=== PATIENT | female | born 1935 | race Two or more races ===

== ENCOUNTER 2016-10-11 09:15 | Outpatient (RCR) | payer MEDICARE, OTHER ==
[~2016-10-11 09:15] MED LIST: CIPROFLOXACIN500 M2 ORAL; IBUPROFEN400 MG ORAL; NORCO 5-325 TA1 EACH ORAL; VALIUM2 MG ORAL
== END 2016-11-04 | disposition home or self-care (01) ==
LOC: PTY 09:15
DX: R26.9 Unspecified abnormalities of gait and mobility (principal); G60.9 Hereditary and idiopathic neuropathy, unspecified; Z91.81 History of falling
CPT/HCPCS: 97110; 97162; G8978; G8979

== ENCOUNTER 2016-12-04 07:52 | Outpatient (RCR) | payer MEDICARE, OTHER | END 2016-12-05 | disposition home or self-care (01) | LOC: PTY 07:52 | DX: R26.9 Unspecified abnormalities of gait and mobility (principal); G60.9 Hereditary and idiopathic neuropathy, unspecified; Z91.81 History of falling ==

== ENCOUNTER 2017-01-02 07:59 | Outpatient (RCR) | payer MEDICARE, OTHER | END 2017-01-04 | disposition home or self-care (01) | LOC: PTY 07:59 | DX: R26.9 Unspecified abnormalities of gait and mobility (principal); G60.9 Hereditary and idiopathic neuropathy, unspecified; Z91.81 History of falling; M54.9 Dorsalgia, unspecified; E03.9 Hypothyroidism, unspecified; E78.00 Pure hypercholesterolemia, unspecified | CPT/HCPCS: 97110; G8978; G8979; G8980 ==

== ENCOUNTER 2017-04-20 11:21 | Emergency (ER) | payer MEDICARE, OTHER ==
[~2017-04-20] VITALS: Ht 152.4 cm; Wt 59.0 kg
[2017-04-20] MEDS ORDERED: Acetaminophen 500mg (ES) tab ORAL ONE (12:00)
[2017-04-20] MEDS ORDERED: ACETAMINOPHEN500 MG ORAL (12:38)
--- NOTE | 2017-04-20 12:55 | Diagnostic Imaging Report ---
Indication: Pain, headache Technique: Continuous helical CT scanning of the head was performed utilizing automated exposure control without intravenous contrast material. Axial and coronal reconstructions were obtained. Comparison: 06/26/2014 CT dose: Total DLP 1439.42 mGycm; CTDI vol 70.38 mGy Findings: There is no acute intracranial hemorrhage, mass effect or cortical edema. CSF attenuation fluid noted around the cerebral hemispheres, increased, compared to the prior exam. Cortical veins are noted crossing the space favoring etiology as atrophy related to enlargement of the subarachnoid space over subdural hygroma. The ventricles, cisterns and sulci are prominent consistent with atrophy. Periventricular hypoattenuation is seen, a nonspecific finding. Mastoid air cells are clear. Some mucosal thickening noted within some ethmoid air cells. No focal lesions of the bony calvarium or soft tissues of the scalp are seen. Impression: No evidence of acute intracranial hemorrhage, mass effect or cortical edema. MRI may be obtained for more sensitive evaluation as clinically indicated. Atrophy and nonspecific periventricular hypoattenuation suggestive of chronic ischemic microvascular changes. The CT scanner at [facility] is accredited by the [employer] and the scans are performed using protocols designed to limit radiation exposure to as low as reasonably achievable to attain images of sufficient resolution adequate for diagnostic evaluation.
[2017-04-20 13:31] VITALS: BP 104/78
--- NOTE | 2017-04-20 16:32 | Emergency Room Report ---
History of Present Illness General Chief Complaint: Multiple Trauma/Fall Present Illness HPI Patient 81-year-old female presented after a fall. The patient was having recently fallen 2 days ago. She reports having moderate headache. She denies any vomiting. She denies any severe neck pain. Patient denied numbness or weakness. She states that she had been having headache since the fall. She denies loss of consciousness. She had been able to move all her extremities. The patient does not take anticoagulants other than aspirin Allergies: Coded Allergies: No Known Allergies (Unverified , 06/26/14) Patient History Past Medical History: see triage record Reviewed Nursing Documentation: PMH: Agreed, PSxH: Agreed Nursing Documentation-PMH Hx Cardiac Problems: Yes - Hypothyroidism, High cholesterol Review of Systems All Other Systems: negative except mentioned in HPI Physical Exam Vital Signs Date Time Temp Pulse Resp B/P (MAP) Pulse Ox O2 Delivery O2 Flow Rate FiO2 04/20/17 11:29 98.2 84 20 115/72 99 Room Air General Appearance: well appearing, no apparent distress, alert, GCS 15 Head: normocephalic, atraumatic ENT: hearing grossly normal, normal voice Neck: full range of motion, supple Respiratory: no respiratory distress, speaking full sentences Cardiovascular #1: normal inspection, regular rate, rhythm Musculoskeletal: normal inspection, back normal, digits/nails normal, gait/ station normal, normal range of motion, no calf tenderness Neurologic: normal gait Psychiatric: mood/affect normal Skin: no rash Medical Decision Making Diagnostic Impression: Primary Impression: Head contusion ER Course patient is a for headache after fall. Differential diagnoses included but was not limited to skull fracture, subarachnoid hemorrhage, meningitis, aneurysm, mass lesion, intracranial hemorrhage.CT the head read by radiology showed no evidence of acute fracture or hemorrhage.The patient is advised to follow up with primary care doctor in 1-2 days. Patient is advised to return if any worsening condition or if any changes in status that are concerning. This report is dictated with [employer] slate picker software which may occasionally lead to discrepancies related to use of this software. Last Vital Signs Date Time Temp Pulse Resp B/P (MAP) Pulse Ox O2 Delivery O2 Flow Rate FiO2 04/20/17 13:31 98.2 82 19 104/78 98 Room Air Status: improved Disposition: HOME, SELF-CARE Condition: Stable Scripts Acetaminophen* (TYLENOL EXTRA STRENGTH*) 500 Mg Tablet 1000 MG ORAL Q6H, #20 TAB Prov: Mukesh Fox 04/20/17 Referrals: NOT CHOSEN IPA/MD,REFERRING (PCP) Patient Instructions: Head Injury, Adult Mukesh Fox Apr 20, 2017 16:32
== END 2017-04-20 13:32 | disposition home or self-care (01) ==
LOC: EMR 12:40
DX: T14.8XXA Other injury of unspecified body region, initial encounter (principal); W19.XXXA Unspecified fall, initial encounter; Y92.9 Unspecified place or not applicable; E03.9 Hypothyroidism, unspecified; E78.00 Pure hypercholesterolemia, unspecified
CPT/HCPCS: 70450; 99284

== ENCOUNTER 2017-05-09 08:00 | Outpatient (RCR) | payer MEDICARE, OTHER ==
[~2017-05-09 08:00] MED LIST changes: +ACETAMINOPHEN500 MG ORAL
== END 2017-06-04 | disposition home or self-care (01) ==
LOC: PTY 08:00
DX: R26.9 Unspecified abnormalities of gait and mobility (principal)
CPT/HCPCS: 97110; 97161; G8978; G8979

== ENCOUNTER 2017-06-06 08:15 | Outpatient (RCR) | payer MEDICARE, OTHER | END 2017-07-05 | disposition home or self-care (01) | LOC: PTY 08:15 | DX: R26.89 Other abnormalities of gait and mobility (principal); G90.09 Other idiopathic peripheral autonomic neuropathy | CPT/HCPCS: 97110; G8979; G8980 ==

== ENCOUNTER 2018-09-14 09:11 | Emergency (ER) | payer MEDICARE, OTHER ==
[~2018-09-14] VITALS: Ht 152.4 cm; Wt 59.0 kg
--- NOTE | 2018-09-14 09:22 | NUR ---
ED Nurse Note: PT WALKED IN TO ER TODAY FROM HOME. AOX4. PT C/O PERSISTENT, NONPRODUCTIVE COUGH X 2 DAYS AGO. PT C/O PAIN WITH COUGH BUT DENIES PAIN AT REST. PT STATES SHE HAS TAKEN OTC MEDICATIONS BUT WITHOUT RELIEF. NO SIGNS OF RESPIRATORY DISTRESS, RETRACTIONS, OR ACCESSORY MUSCLE USE NOTED. LUNG SOUNDS CLEAR IN ALL LOBES. PT ABLE TO SPEAK IN FULL SENTENCES WITHOUT DIFFICULTY.
[2018-09-14 09:24] VITALS: BP 114/74
[2018-09-14] MEDS ORDERED: ZITHROMAX250 MG ORAL (09:27)
[2018-09-14] MEDS ORDERED: ALBUTEROL SULF8.5 GM INH (09:27)
[2018-09-14 09:31] VITALS: BP 114/74
--- NOTE | 2018-09-14 09:31 | NUR ---
Note jenna in EDM - 09/14/18 at 0934 by FLAQUITO ER DISCHARGE NOTE: Patient is cleared to be discharged per ERMD, pt is aox4, on room air, with stable vital signs. pt was given dc and prescription instructions, pt was able to verbalize understanding, pt id band removed. pt is able to ambulate with steady gait. pt took all belongings.
--- NOTE | 2018-09-14 09:34 | NUR ---
ED Nurse Note: PT LAYING PEACEFULLY IN BED IN NAD. AOX4. PRESCRIPTIONS AND DISCHARGE PAPERWORK EXPLAINED TO PT. PT VERBALIZES UNDERSTANDING AND ALL QUESTIONS ANSWERED. PRESCRIPTIONS AND DISCHARGE PAPERWORK GIVEN TO PT AND ID WRISTBAND REMOVED. PT WALKED OUT OF ER WITH STEADY GAIT AND ALL BELONGINGS.
--- NOTE | 2018-09-14 10:28 | Emergency Room Report ---
History of Present Illness General Chief Complaint: Upper Respiratory Illness Source: Patient, Medical Record Present Illness HPI Patient presents emergency department today complaining of cough and congestion. Patient also has some fevers and chills at home. States the symptoms have been going for couple days. She has some chest discomfort when she is coughing. She denies any shortness of breath. Denies any nausea vomiting diarrhea or chills. Symptoms noted to moderate. No other modifying factors. No other associated signs and symptoms. No other complaints were noted. Allergies: Coded Allergies: No Known Allergies (Unverified , 06/26/14) Patient History Past Medical History: none Past Surgical History: none Pertinent Family History: none Social History: Denies: smoking, alcohol use, drug use Reviewed Nursing Documentation: PMH: Agreed; PSxH: Agreed Nursing Documentation-PMH Past Medical History: No History, Except For Hx Cardiac Problems: Yes - Hypothyroidism, High cholesterol Review of Systems All Other Systems: negative except mentioned in HPI Physical Exam Vital Signs Date Time Temp Pulse Resp B/P (MAP) Pulse Ox O2 Delivery O2 Flow Rate FiO2 09/14/18 09:17 97.9 84 16 115/78 (90) 97 Room Air Sp02 EP Interpretation: reviewed, normal General Appearance: normal inspection, well appearing, no apparent distress, alert Head: atraumatic Eyes: bilateral eye normal inspection ENT: normal ENT inspection, hearing grossly normal, normal voice Neck: normal inspection, full range of motion, supple, no bony tend Respiratory: normal inspection, lungs clear, normal breath sounds, no respiratory distress, no retraction, no wheezing Cardiovascular #1: regular rate, rhythm, no edema Gastrointestinal: normal inspection, normal bowel sounds, non tender, soft, no guarding, no hernia Genitourinary: no CVA tenderness Musculoskeletal: normal inspection, back normal, normal range of motion Neurologic: normal inspection, alert, responsive, speech normal Psychiatric: normal inspection, judgement/insight normal, mood/affect normal Skin: normal inspection, normal color, no rash Medical Decision Making Diagnostic Impression: Primary Impression: Cough ER Course Patient presents emergency department today complaint cough congestion. Differential considerations include pneumonia, bronchitis, viral syndrome just name a few. Patient's exam is consistent with bronchitis. Given patient's symptoms and advanced age I feel that is reasonable start patient on antibiotics. Patient was started with Zithromax albuterol. Patient is advised to follow up with primary doctor in 2-3 days and return the emergency room for any worsening symptoms and as needed. Last Vital Signs Date Time Temp Pulse Resp B/P (MAP) Pulse Ox O2 Delivery O2 Flow Rate FiO2 09/14/18 09:31 98.0 78 17 114/74 98 Room Air Status: improved Disposition: HOME, SELF-CARE Condition: Stable Scripts Albuterol Sulfate* (ALBUTEROL SULFATE MDI*) 8.5 Gm Hfa.aer.ad 2 PUFF INH Q4H PRN for cough/wheezing, #1 EA 0 Refills Prov: Jose Alberto Vidales MD 09/14/18 Azithromycin* (ZITHROMAX*) 250 Mg Tablet 250 MG ORAL DAILY, #6 TAB 0 Refills Take two tables once daily for 1 day, then one tablet once daily for 4 days. Prov: Jose Alberto Vidales MD 09/14/18 Referrals: NON PHYSICIAN (PCP) Patient Instructions: Upper Respiratory Infection, Adult Jose Alberto Vidales MD Sep 14, 2018 10:28
== END 2018-09-14 09:31 | disposition home or self-care (01) ==
LOC: EMR 09:25
DX: R05 Cough (principal); R50.9 Fever, unspecified; E03.9 Hypothyroidism, unspecified; E78.00 Pure hypercholesterolemia, unspecified
CPT/HCPCS: 99282

== ENCOUNTER 2019-04-13 08:57 | Observation (INO) | payer MEDICARE, OTHER ==
[~2019-04-13] VITALS: Ht 152.4 cm; Wt 45.8 kg
[~2019-04-13 08:57] MED LIST changes: +ALBUTEROL SULF8.5 GM INH; +ZITHROMAX250 MG ORAL
[2019-04-13 09:02] VITALS: BP 106/64
--- NOTE | 2019-04-13 09:02 | NUR ---
ED Nurse Note: PT BROUGHT IN BY RA 858 FROM HOME DUE TO BODY WEAKNESS. PER EMS, PT WAS STANDING IN THE GARAGE AND FELT THAT HER LEGS WERE GIVING UP. DENIES FALL OR INJURY. AAO X4, AMBULATORY, FOLLOWS COMMANDS WITH NON LABORED BREATHING.
--- NOTE | 2019-04-13 09:21 | NUR ---
ED Nurse Note: COLLECTED BLOOD THEN SENT.
[2019-04-13 09:24] LABS: BASOPHILS % (AUTO) 0.5 % (0.0-2.0); EOSINOPHILS % (AUTO) 0.6 % (0.0-3.0); HEMATOCRIT 41.7 % (37.0-47.0); HEMOGLOBIN 14.1 G/DL (12.0-16.0); LYMPHOCYTES % (AUTO) 35.6 % (20.0-45.0); MEAN CORPUSCULAR VOLUME 94 FL (80-99); MONOCYTES % (AUTO) 6.4 % (1.0-10.0); NEUTROPHILS % (AUTO) 56.9 % (45.0-75.0); PLATELET COUNT 193 K/UL (150-450); RED BLOOD COUNT 4.43 M/UL (4.20-5.40); RED CELL DISTRIBUTION WIDTH 12.3 % (11.6-14.8); WHITE BLOOD COUNT 5.9 K/UL (4.8-10.8)
--- NOTE | 2019-04-13 09:30 | NUR ---
ED Nurse Note: COLLECTED URINE THEN SENT.
[2019-04-13 09:32] LABS: ANION GAP 7 mmol/L (5-15); BLOOD UREA NITROGEN 26 mg/dL (7-18); CARBON DIOXIDE 30 MMOL/L (21-32); CHLORIDE 105 MMOL/L (98-107); CREATININE 0.9 MG/DL (0.55-1.30); POTASSIUM 4.1 MMOL/L (3.5-5.1); SODIUM 141 MMOL/L (136-145)
[2019-04-13 09:36] LABS: ALANINE AMINOTRANSFERASE 32 U/L (12-78); ALBUMIN/GLOBULIN RATIO 1.1 (1.0-2.7); ALKALINE PHOSPHATASE 60 U/L (46-116); ASPARTATE AMINO TRANSFERASE 41 U/L (15-37); BILIRUBIN,TOTAL 0.5 MG/DL (0.2-1.0)
[2019-04-13 10:04] LABS: APPEARANCE,URINE SLIGHTLY CLOUDY; BILIRUBIN, URINE NEGATIVE (NEGATIVE); COLOR,URINE PALE YELLOW; GLUCOSE, URINE (UA) NEGATIVE (NEGATIVE); KETONES,URINE NEGATIVE (NEGATIVE); LEUKOCYTE ESTERASE ,URINE NEGATIVE (NEGATIVE); NITRITE,URINE NEGATIVE (NEGATIVE); PH,URINE 7 (4.5-8.0); PROTEIN,URINE NEGATIVE (NEGATIVE); UROBILINOGEN,URINE NORMAL MG/DL (0.0-1.0)
--- NOTE | 2019-04-13 10:30 | Emergency Room Report ---
History of Present Illness General Chief Complaint: Generalized Weakness Source: Patient, EMS Present Illness HPI Patient presents emergency department today with generalized weakness. Patient states that she is elderly and she does not feel well. Patient called 911 to be transported here. Patient's primary care physician is as result rob. Patient states that she is feeling so weak she cannot stand as result she had a call 911 to come here. She any fever nausea vomiting diarrhea chills. Denies any chest pain shortness of breath. No other modifying factors. No other associated signs and symptoms. No other complaints were noted. Allergies: Coded Allergies: No Known Allergies (Unverified , 06/26/14) Patient History Past Medical History: none Past Surgical History: none Pertinent Family History: none Social History: Denies: smoking, alcohol use, drug use Reviewed Nursing Documentation: PMH: Agreed; PSxH: Agreed Review of Systems All Other Systems: negative except mentioned in HPI Physical Exam Vital Signs Date Time Temp Pulse Resp B/P (MAP) Pulse Ox O2 Delivery O2 Flow Rate FiO2 04/13/19 08:52 98.8 70 17 114/69 (84) 94 Room Air Sp02 EP Interpretation: reviewed, normal General Appearance: alert, mild distress, thin Head: normocephalic, atraumatic Eyes: bilateral eye normal inspection ENT: normal ENT inspection, hearing grossly normal, normal voice Neck: normal inspection, full range of motion, supple, no bony tend Respiratory: normal inspection, lungs clear, normal breath sounds, no respiratory distress, no retraction, no wheezing Cardiovascular #1: regular rate, rhythm, no edema Gastrointestinal: normal inspection, normal bowel sounds, non tender, soft, no guarding, no hernia Genitourinary: no CVA tenderness Musculoskeletal: normal inspection, back normal, normal range of motion Neurologic: alert, responsive, speech normal, normal inspection Psychiatric: normal inspection, judgement/insight normal, mood/affect normal Skin: no rash Medical Decision Making Diagnostic Impression: Primary Impression: Failure to thrive Additional Impressions: Dehydration Generalized weakness Unable to ambulate ER Course Patient presents emergency department today with generalized weakness and inability ambulate. Differential diagnosis include infectious process, dehydration, electrolyte abnormality, failure to thrive just name a few. Given the severity of the patient's presentation I felt this is a highly complex patient. This patient required extensive workup. Patient laboratory work-up was not impressive but she appeared to be weak and was unable to ambulate because of that I felt patient could be dehydrated as well. Patient was started on fluid bolus. Given patient's poor condition I feel the patient required placement at least in observation. Case was discussed with Dr. Love. Patient will be placed on observation status. Labs Test 04/13/19 09:15 04/13/19 09:30 White Blood Count 5.9 K/UL (4.8-10.8) Red Blood Count 4.43 M/UL (4.20-5.40) Hemoglobin 14.1 G/DL (12.0-16.0) Hematocrit 41.7 % (37.0-47.0) Mean Corpuscular Volume 94 FL (80-99) Mean Corpuscular Hemoglobin 31.8 PG (27.0-31.0) Mean Corpuscular Hemoglobin Concent 33.8 G/DL (32.0-36.0) Red Cell Distribution Width 12.3 % (11.6-14.8) Platelet Count 193 K/UL (150-450) Mean Platelet Volume 7.4 FL (6.5-10.1) Neutrophils (%) (Auto) 56.9 % (45.0-75.0) Lymphocytes (%) (Auto) 35.6 % (20.0-45.0) Monocytes (%) (Auto) 6.4 % (1.0-10.0) Eosinophils (%) (Auto) 0.6 % (0.0-3.0) Basophils (%) (Auto) 0.5 % (0.0-2.0) Sodium Level 141 MMOL/L (136-145) Potassium Level 4.1 MMOL/L (3.5-5.1) Chloride Level 105 MMOL/L (98-107) Carbon Dioxide Level 30 MMOL/L (21-32) Anion Gap 7 mmol/L (5-15) Blood Urea Nitrogen 26 mg/dL (7-18) Creatinine 0.9 MG/DL (0.55-1.30) Estimat Glomerular Filtration Rate mL/min (>60) Glucose Level 100 MG/DL (74-106) Calcium Level 10.0 MG/DL (8.5-10.1) Total Bilirubin 0.5 MG/DL (0.2-1.0) Aspartate Amino Transf (AST/SGOT) 41 U/L (15-37) Alanine Aminotransferase (ALT/SGPT) 32 U/L (12-78) Alkaline Phosphatase 60 U/L (46-116) Troponin I 0.000 ng/mL (0.000-0.056) Total Protein 7.6 G/DL (6.4-8.2) Albumin 4.0 G/DL (3.4-5.0) Globulin 3.6 g/dL Albumin/Globulin Ratio 1.1 (1.0-2.7) Lipase 204 U/L (73-393) Urine Color Pale yellow Urine Appearance Slightly cloudy Urine pH 7 (4.5-8.0) Urine Specific [place] 1.010 (1.005-1.035) Urine Protein Negative (NEGATIVE) Urine Glucose (UA) Negative (NEGATIVE) Urine Ketones Negative (NEGATIVE) Urine Blood Negative (NEGATIVE) Urine Nitrite Negative (NEGATIVE) Urine Bilirubin Negative (NEGATIVE) Urine Urobilinogen Normal MG/DL (0.0-1.0) Urine Leukocyte Esterase Negative (NEGATIVE) Urine RBC 0 /HPF (0 - 2) Urine WBC 0 /HPF (0 - 2) Urine Squamous Epithelial Cells Occasional /LPF Urine Amorphous Sediment Few /LPF (NONE) Urine Bacteria Occasional /HPF (NONE) EKG Diagnostic Results Rate: normal Rhythm: NSR ST Segments: no acute changes Rhythm Strip Diag. Results EP Interpretation: yes Rate: 64 Rhythm: NSR, no PVC's, no ectopy Chest X-Ray Diagnostic Results Chest X-Ray Diagnostic Results : Chest X-Ray Ordered: Yes # of Views/Limited/Complete: 1 View Indication: Chest Pain EP Interpretation: Yes Impression: No acute disease Electronically Signed by: Electronically signed by Jose Alberto Vidales MD Last Vital Signs Date Time Temp Pulse Resp B/P (MAP) Pulse Ox O2 Delivery O2 Flow Rate FiO2 04/13/19 09:02 98.8 86 16 106/64 97 Room Air Status: improved Disposition: PLACE IN OBSERVATION Condition: Serious Scripts Unable to Obtain Active Prescriptions or Reported Meds Referrals: NOT CHOSEN IPA/,REFERRING (PCP) Jose Alberto Vidales MD Apr 13, 2019 10:30
[2019-04-13 10:33] VITALS: BP 118/70
--- NOTE | 2019-04-13 10:33 | NUR ---
ED Nurse Note: REPORT GIVEN TO FREDDY RN BY LEANDRO STRAUSS.
[2019-04-13 10:59] VITALS: BP 117/60
--- NOTE | 2019-04-13 11:52 | Diagnostic Imaging Report ---
Indication: Cough Technique: One view of the chest Comparison: 06/26/2014 Findings: There is thoracolumbar scoliotic deformity. Lungs and pleural spaces are clear. Left axillary surgical clips are again demonstrated. The heart size is normal. There is no significant interim change Impression: No acute process
[2019-04-13 12:00] VITALS: BP 105/64
--- NOTE | 2019-04-13 14:34 | NUR ---
NURSE NOTES: Received pt from TAMARA STRAUSS at 1030. pt is alert and orient x4. pt is in RA, no SOB or acute respiratory distress. pt has intact iv access RAC 20G is running well. Dr LARSON is aware about admission, all orders noted and carried out. skin is intact. all needs attended, bed is locked and is in the lowest position, call light within easy reach. will continue to monitor. Addendum: 04/13/19 at 1453 by Paul Ribeiro RN pt doesn't have any list from home meds and doesn't remember their name, Dr LARSON notified and he stated he has and orders done.
[2019-04-13 16:00] VITALS: BP 101/57
--- NOTE | 2019-04-13 17:47 | General Progress Note ---
Subjective Date patient seen: Apr 13, 2019 Time patient seen: 17:40 Allergies: Coded Allergies: No Known Allergies (Unverified , 06/26/14) Subjective patient was seen and examined and full dictation done. Objective Last 24 Hour Vital Signs Date Time Temp Pulse Resp B/P (MAP) Pulse Ox O2 Delivery O2 Flow Rate FiO2 04/13/19 16:00 97.4 65 18 101/57 (72) 99 04/13/19 12:00 98.6 66 18 105/64 (78) 98 04/13/19 11:00 Room Air 04/13/19 10:59 98.6 60 20 117/60 (79) 98 04/13/19 10:33 98.6 75 20 118/70 97 Room Air 04/13/19 10:33 98.6 75 20 118/70 97 Room Air 04/13/19 09:02 98.8 86 16 106/64 97 Room Air 04/13/19 09:02 87 16 Room Air 04/13/19 08:52 98.8 70 17 114/69 (84) 94 Room Air Laboratory Tests 04/13/19 09:15: White Blood Count 5.9, Red Blood Count 4.43, Hemoglobin 14.1, Hematocrit 41.7, Mean Corpuscular Volume 94, Mean Corpuscular Hemoglobin 31.8H, Mean Corpuscular Hemoglobin Concent 33.8, Red Cell Distribution Width 12.3, Platelet Count 193, Mean Platelet Volume 7.4, Neutrophils (%) (Auto) 56.9, Lymphocytes (%) (Auto) 35.6, Monocytes (%) (Auto) 6.4, Eosinophils (%) (Auto) 0.6, Basophils (%) (Auto ) 0.5, Sodium Level 141, Potassium Level 4.1, Chloride Level 105, Carbon Dioxide Level 30, Anion Gap 7, Blood Urea Nitrogen 26H, Creatinine 0.9, Estimat Glomerular Filtration Rate , Glucose Level 100, Calcium Level 10.0, Total Bilirubin 0.5, Aspartate Amino Transf (AST/SGOT) 41H, Alanine Aminotransferase ( ALT/SGPT) 32, Alkaline Phosphatase 60, Troponin I 0.000, Total Protein 7.6, Albumin 4.0, Globulin 3.6, Albumin/Globulin Ratio 1.1, Lipase 204 04/13/19 09:30: Urine Color Pale yellow, Urine Appearance Slightly cloudy, Urine pH 7, Urine Specific [place] 1.010, Urine Protein Negative, Urine Glucose (UA) Negative, Urine Ketones Negative, Urine Blood Negative, Urine Nitrite Negative, Urine Bilirubin Negative, Urine Urobilinogen Normal, Urine Leukocyte Esterase Negative , Urine RBC 0, Urine WBC 0, Urine Squamous Epithelial Cells Occasional, Urine Amorphous Sediment FewH, Urine Bacteria Occasional Height (Feet): 5 Height (Inches): 0.00 Weight (Pounds): 102 Ray Pena MD Apr 13, 2019 17:47
--- NOTE | 2019-04-13 19:16 | NUR ---
HAND-OFF: Report given to CARLOS A AVENDANO. Pt is alert and stable. daughter is on bed side.
--- NOTE | 2019-04-13 19:30 | History and Physical Report ---
DATE OF ADMISSION: 04/13/2019 CHIEF COMPLAINT: Generalized weakness. HISTORY OF PRESENT ILLNESS: This is a 83-year-old female who came in for complaint of generalized weakness with shipfitter apprentice. The patient states she got up to go the adult daycare center this morning and as she was waiting for the bus for transport, she could not stand and was unable to move, so she called shipfitter apprentice 911 and was transported to the emergency room for evaluation. In the ER, the patient vitals were all within normal range. Laboratory results are okay except for slight dehydration. EKG was also normal. The patient still complained of generalized weakness, was brought in for observation overnight. ALLERGIES: No known drug allergies. PAST MEDICAL HISTORY: Includes history of hypothyroidism and anxiety disorder. FAMILY HISTORY: Noncontributory. SOCIAL HISTORY: The patient lives alone. No history of alcohol or drug use. No smoking history. PAST SURGICAL HISTORY: None. REVIEW OF SYSTEMS: Review of systems were negative except for history of present illness. PHYSICAL EXAMINATION: VITAL SIGNS: Include temperature 98.8, pulse 70, respirations 17, blood pressure 114/69, pulse ox 94% on room air. GENERAL APPEARANCE: Alert and oriented x3, no distress. HEENT: Normocephalic and normochromic. Extraocular muscles intact. Throat is clear. NECK: Supple. No lymphadenopathy. LUNGS: Clear to auscultation bilaterally CARDIOVASCULAR: Regular rate and rhythm. No murmur. No gallop. ABDOMEN: Soft, nontender, nondistended. Positive bowel sounds. EXTREMITIES: No edema, cyanosis, or clubbing. No CVA tenderness. NEUROLOGIC: Respond to commands and responsive. SKIN: No rash. LABORATORY DATA: WBC 5.9, hemoglobin 14.1, hematocrit 41.7, platelet count 193, neutrophils 56, lymphocytes 35, monos 6.4, eosinophils 0.6, basophils 0.5. Sodium 141, potassium 4.1, chloride 105, carbon dioxide 30, BUN 26, creatinine 0.9, glucose 100, calcium 10, AST 41, ALT 32, alkaline phosphatase 60, and albumin 4.0. Lipase 204. Troponin 0. UA were negative. EKG showed normal sinus rhythm. Chest x-ray showed no acute processes. IMPRESSION: 1. Dehydration. 2. Failure to thrive. 3. Generalized weakness. PLAN: The patient will be brought in for observation overnight and start IV fluids normal saline at 50 mL an hour and we will have the PT/OT evaluate the patient while in the hospital. We will restart the patient on home medications for her hypothyroidism, anxiety, and the patient will be brought in for observation at this point. Ray Pena M.D. DR: Elda JOB#: [id number] CC: CANDIDA
--- NOTE | 2019-04-13 19:30 | NUR ---
NURSE NOTES: Received patient awake, eating dinner, AOx4, daughter at the bedside. IV access patent, asymptomatic, running IVF maintenance. Patient's own walker noted at the bedside. Bed low and locked, wheels locked, belongings within reach.
[2019-04-13 20:00] VITALS: BP 115/64
--- NOTE | 2019-04-13 20:25 | NUR ---
NURSE NOTES: Dr Green paged for zoloft order per patient request.
[2019-04-13] MEDS ORDERED: Sertraline 50mg tab ORAL SCH (21:00)
[2019-04-13] MEDS ORDERED: Atorvastatin 20mg tab ORAL SCH (21:00)
[2019-04-14] VITALS: BP 105/59
[2019-04-14 04:00] VITALS: BP 108/59
[2019-04-14] MEDS ORDERED: Levothyroxine 25mcg tab ORAL SCH (06:30)
[2019-04-14 06:33] LABS: BASOPHILS % (AUTO) 1.1 % (0.0-2.0); EOSINOPHILS % (AUTO) 1.7 % (0.0-3.0); HEMATOCRIT 39.3 % (37.0-47.0); HEMOGLOBIN 13.2 G/DL (12.0-16.0); LYMPHOCYTES % (AUTO) 35.8 % (20.0-45.0); MEAN CORPUSCULAR VOLUME 95 FL (80-99); MONOCYTES % (AUTO) 10.2 % (1.0-10.0); NEUTROPHILS % (AUTO) 51.2 % (45.0-75.0); PLATELET COUNT 175 K/UL (150-450); RED BLOOD COUNT 4.12 M/UL (4.20-5.40); RED CELL DISTRIBUTION WIDTH 12.4 % (11.6-14.8); WHITE BLOOD COUNT 4.6 K/UL (4.8-10.8)
[2019-04-14 06:50] LABS: ANION GAP 8 mmol/L (5-15); BLOOD UREA NITROGEN 19 mg/dL (7-18); CALCIUM 8.5 MG/DL (8.5-10.1); CARBON DIOXIDE 26 MMOL/L (21-32); CHLORIDE 110 MMOL/L (98-107); CREATININE 0.7 MG/DL (0.55-1.30); POTASSIUM 3.5 MMOL/L (3.5-5.1); SODIUM 144 MMOL/L (136-145)
--- NOTE | 2019-04-14 07:45 | NUR ---
HAND-OFF: Report given to CARLOS A Hewitt.
--- NOTE | 2019-04-14 07:47 | NUR ---
NURSE NOTES: Patient awake, alert x4, Cam[place]onian and Slovenian speaking; on room air, no sing of distress and shortness of breath; no sing of chest pain; IV Left For-arm 22G NS 50cc running; walker and [place] at the bed side, within reach; side rails up x2, breaks engaged, bed at lowest position; will keep monitoring.
[2019-04-14 08:00] VITALS: BP 115/69
[2019-04-14] MEDS ORDERED: LIPITOR20 MG ORAL (08:48)
[2019-04-14] MEDS ORDERED: ZOLOFT50 MG ORAL (08:48)
[2019-04-14] MEDS ORDERED: SYNTHROID25 MCG ORAL (08:48)
[2019-04-14] MEDS ORDERED: ASPIRIN81 MG ORAL (08:48)
--- NOTE | 2019-04-14 08:53 | General Progress Note ---
Assessment/Plan Status: stable Assessment/Plan: 1. Dehydration - improved. will D/C home today with home health. 2. Hypothyroidism - cont home med 3. Anxiety disorder - cont home med. 4. Osteoarthritis - may take tylenol 650 mg q 6 hrs prn. Subjective Date patient seen: Apr 14, 2019 Time patient seen: 08:15 Constitutional: Reports: weakness HEENT: Reports: no symptoms Cardiovascular: Reports: no symptoms Respiratory: Reports: no symptoms Gastrointestinal/Abdominal: Reports: no symptoms Genitourinary: Reports: no symptoms Neurologic/Psychiatric: Reports: no symptoms Endocrine: Reports: no symptoms Hematologic/Lymphatic: Reports: no symptoms Allergies: Coded Allergies: No Known Allergies (Unverified , 06/26/14) Subjective Patient able to walk with walker. doing better with IV hydration and she wants to go home. Objective Last 24 Hour Vital Signs Date Time Temp Pulse Resp B/P (MAP) Pulse Ox O2 Delivery O2 Flow Rate FiO2 04/14/19 08:00 98.0 63 18 115/69 (84) 97 04/14/19 04:00 97.2 70 14 108/59 (75) 99 04/14/19 00:00 97.0 62 16 105/59 (74) 99 04/13/19 22:19 Room Air 04/13/19 20:00 96.8 67 18 115/64 (81) 99 04/13/19 16:00 97.4 65 18 101/57 (72) 99 04/13/19 12:00 98.6 66 18 105/64 (78) 98 04/13/19 11:00 Room Air 04/13/19 10:59 98.6 60 20 117/60 (79) 98 04/13/19 10:33 98.6 75 20 118/70 97 Room Air 04/13/19 10:33 98.6 75 20 118/70 97 Room Air 04/13/19 09:02 98.8 86 16 106/64 97 Room Air 04/13/19 09:02 87 16 Room Air 04/13/19 08:52 98.8 70 17 114/69 (84) 94 Room Air Intake and Output 04/13/19 04/14/19 19:00 07:00 Intake Total 1600 ml 350 ml Balance 1600 ml 350 ml Intake Oral 800 ml IV Total 800 ml 350 ml # Voids 5 3 Laboratory Tests 04/13/19 09:15: White Blood Count 5.9, Red Blood Count 4.43, Hemoglobin 14.1, Hematocrit 41.7, Mean Corpuscular Volume 94, Mean Corpuscular Hemoglobin 31.8H, Mean Corpuscular Hemoglobin Concent 33.8, Red Cell Distribution Width 12.3, Platelet Count 193, Mean Platelet Volume 7.4, Neutrophils (%) (Auto) 56.9, Lymphocytes (%) (Auto) 35.6, Monocytes (%) (Auto) 6.4, Eosinophils (%) (Auto) 0.6, Basophils (%) (Auto ) 0.5, Sodium Level 141, Potassium Level 4.1, Chloride Level 105, Carbon Dioxide Level 30, Anion Gap 7, Blood Urea Nitrogen 26H, Creatinine 0.9, Estimat Glomerular Filtration Rate , Glucose Level 100, Calcium Level 10.0, Total Bilirubin 0.5, Aspartate Amino Transf (AST/SGOT) 41H, Alanine Aminotransferase ( ALT/SGPT) 32, Alkaline Phosphatase 60, Troponin I 0.000, Total Protein 7.6, Albumin 4.0, Globulin 3.6, Albumin/Globulin Ratio 1.1, Lipase 204 04/13/19 09:30: Urine Color Pale yellow, Urine Appearance Slightly cloudy, Urine pH 7, Urine Specific [place] 1.010, Urine Protein Negative, Urine Glucose (UA) Negative, Urine Ketones Negative, Urine Blood Negative, Urine Nitrite Negative, Urine Bilirubin Negative, Urine Urobilinogen Normal, Urine Leukocyte Esterase Negative , Urine RBC 0, Urine WBC 0, Urine Squamous Epithelial Cells Occasional, Urine Amorphous Sediment FewH, Urine Bacteria Occasional 04/14/19 04:27: White Blood Count 4.6L, Red Blood Count 4.12L, Hemoglobin 13.2, Hematocrit 39.3 , Mean Corpuscular Volume 95, Mean Corpuscular Hemoglobin 32.2H, Mean Corpuscular Hemoglobin Concent 33.7, Red Cell Distribution Width 12.4, Platelet Count 175, Mean Platelet Volume 6.9, Neutrophils (%) (Auto) 51.2, Lymphocytes (% ) (Auto) 35.8, Monocytes (%) (Auto) 10.2H, Eosinophils (%) (Auto) 1.7, Basophils (%) (Auto) 1.1, Sodium Level 144, Potassium Level 3.5, Chloride Level 110H, Carbon Dioxide Level 26, Anion Gap 8, Blood Urea Nitrogen 19H, Creatinine 0.7, Estimat Glomerular Filtration Rate , Glucose Level 94, Calcium Level 8.5 Height (Feet): 5 Height (Inches): 0.00 Weight (Pounds): 101 General Appearance: no apparent distress, alert EENT: normal ENT inspection Neck: non-tender, normal alignment, supple Cardiovascular: normal rate, regular rhythm Respiratory/Chest: lungs clear, normal breath sounds Abdomen: non tender, soft Extremities: normal range of motion, non-tender Edema: no edema noted Arm (L), no edema noted Arm (R), no edema noted Leg (L), no edema noted Leg (R), no edema noted Pedal (L), no edema noted Pedal (R), no edema noted Generalized Neurologic: alert, oriented x 3, responsive Skin: warm/dry Ray Pena MD Apr 14, 2019 08:53
[2019-04-14] MEDS ORDERED: Aspirin Baby 81mg ORAL SCH (09:00)
[2019-04-14] MEDS ORDERED: Sertraline 100mg tab ORAL SCH (09:00)
--- NOTE | 2019-04-14 09:25 | NUR ---
CASE MANAGEMENT:INITIAL REVIEW 83 YR OLD FEMALE BIBA FROM HOME CC;GENERALIZED WEAKNESS SI;FTT. GENERALIZED WEAKNESS. DEHYDRATION. 98.8 70 17 101/57 94% RA BUN 26 AST 41 IS;IVF NS ADMITTED TO MED SURG DCP;TO HOME
--- NOTE | 2019-04-14 09:25 | NUR ---
PT EVALUATION NOTE Patient seen for initial evaluation. Patient presents with generalized weakness and pain B feet which impairs patient's ability to perform mobility tasks safely. Patient requires supervision and verbal cues for safety for transfers and ambulation with FWW, slightly unsteady during ambulation however no loss of balance. Patient able to ambulate 250 ft with supervision and FWW, bilateral foot flat at initial contact. Patient will benefit from skilled inpatient PT intervention to address LE strength, balance and safety for improved level of functional mobility. Recommend discharge home once medically cleared by MD. No DME needs identified at this time, patient has own FWW. Addendum: 04/14/19 at 1033 by YOBANI ARCHULETA PT Amended: Links added.
[2019-04-14 12:00] VITALS: BP 120/64
--- NOTE | 2019-04-14 13:10 | NUR ---
CASE MANAGEMENT: HOME HEALTH NOTE CLINICALS FAXED TO : [facility] - TELEVISION PRODUCTION CLERK P: [phone] F: [phone] Addendum: 04/14/19 at 1500 by ELISA MINAYA LVN LVN CALL BACK RECEIVED FROM MICHAELA WITH [facility] PATIENT ACCEPTED FOR SERVICES AND WILL BE CONTACTED DIRECTLY TO SCHEDULE HOME VISIT
--- NOTE | 2019-04-14 15:50 | NUR ---
NURSE NOTES: Patient went down stairs by Travel Specialist, Dulce, around 0330 to a taxi; however the taxi cab didn't arrive; patient refused to come by to the floor; nursing pump service supervisor Verito and charge nurse Vic is aware.
--- NOTE | 2019-04-14 16:37 | NUR ---
NURSE NOTES: Patient discharged to home, picked up by Taxi; IV and name tag removed upon discharge; patient's belonging list singed by patient and patient; patient received her money from safe by nursing litharge supervisor Verito and security; patient left with her walker and have her belonging with her; patient was stable upon discharge. Patient's daughter Devon notified that patient is discharge to home via Taxi.
--- NOTE | 2019-04-14 20:30 | Discharge Summary ---
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 The patient was found to have slight dehydration and was hydrated with intravenous fluid, normal saline and improved while in the hospital but still have generalized weakness and refused to go to the [facility], so we will have her go to the home with home health for physical therapy. Laboratories were all within normal range. EKG and chest x-ray were normal. DISCHARGE DIAGNOSES: Include 1. Dehydration. 2. Hypothyroidism. 3. Anxiety disorder. 4. Osteoarthritis. DISCHARGE MEDICATIONS: 1. Aspirin 81 mg. 2. Lipitor 20 mg nightly. 3. Levothyroxine 25 mcg daily as well of 50 mcg nightly. 4. Tylenol as needed for pain. DISPOSITION: The patient will be going home today with home health and I will be following the patient within one week. Ray Pena M.D. DR: Elda JOB#: [id number] CC: CANDIDA
== END 2019-04-14 16:50 | disposition home or self-care (01) ==
LOC: EDBD 08:57 → EMR 09:18 → INTOOBSV 09:49 → 4E 09:49 → EDBEDREQ 10:17 → 4E 11:03
DX: E86.0 Dehydration (principal); E03.9 Hypothyroidism, unspecified; F41.9 Anxiety disorder, unspecified; M19.90 Unspecified osteoarthritis, unspecified site; Z79.82 Long term (current) use of aspirin; R62.7 Adult failure to thrive; Z68.1 Body mass index [BMI] 19.9 or less, adult; R53.1 Weakness
CPT/HCPCS: 36415; 71045; 80048; 80053; 81003; 83690; 84484; 85025; 93005; 99284